=== PATIENT | male | born 1985 | race Hispanic/Latino ===

== ENCOUNTER 2019-01-29 00:53 | Observation (INO) | payer SELFPAY ==
[2019-01-29] MEDS ORDERED: Morphine 4 MG/ML VIAL ONE ×3 (01:11→03:45)
[2019-01-29] MEDS ORDERED: Ondansetron PF 4 MG/2 ML Vial ONE ×2 (01:11→13:54)
[2019-01-29 01:33] LABS: #Basophils 0.1 thou/uL (0.0-0.2); #Eosinphils 0.1 thou/uL (0.0-0.7); #Lymphocytes 2.5 thou/uL (1.20-3.40); #Monocytes 0.7 thou/uL (0.11-0.59); #Neutrophils 7.2 thou/uL (1.40-6.50); %Basophils 1.2 % (0.0-1.0); %Eosinophils 0.5 % (0.0-10.0); %Lymphocytes 23.9 % (21.0-51.0); %Monocytes 6.5 % (0.0-10.0); %Neutrophils 67.9 % (42.0-75.0); Hemoglobin 15.8 g/dL (14.0-18.0); Mean Corpuscular HGB CONC 34.9 g/dL (32.0-36.0); Mean Corpuscular Hemoglobin 29.7 pg (27.0-31.0); Mean Corpuscular Volume 84.9 fL (78.0-98.0); Platelet Count 152 thou/uL (130-400); RBC Distribution Width 12.6 % (11.5-14.5); Red Blood Cell (RBC) Count 5.33 mill/uL (4.70-6.10); White Blood Cell (WBC) Count 10.6 thou/uL (4.8-10.8)
[2019-01-29 01:51] LABS: ALT (SGPT) 69 U/L (8-55); AST (SGOT) 41 U/L (5-34); Albumin 4.8 g/dL (3.5-5.0); Alkaline Phosphatase 118 U/L (40-150); Anion Gap 16 mmol/L (10-20); BUN (Urea Nitrogen) 18 mg/dL (8.9-20.6); Bilirubin, Total 0.5 mg/dL (0.2-1.2); Calc. Creatinine Clearance 0 mL/min (70-130); Carbon Dioxide 24 mmol/L (22-29); Chloride 101 mmol/L (98-107); Estimated GFR-MDRD 83; Globulin 4.3 g/dL (2.4-3.5); Glucose 142 mg/dL (70-105); Lipase 32 U/L (8-78); Protein, Total 9.1 g/dL (6.0-8.3); Sodium 137 mmol/L (136-145)
[2019-01-29] MEDS ORDERED: Piperacillin/Tazobactam 4.5 GM VIAL ONE (03:45)
[2019-01-29 04:44] VITALS: BMI 45.1
[2019-01-29] MEDS ORDERED: Morphine 4 MG/ML VIAL SLOW IVP PRN ×2 (05:32→14:57)
[2019-01-29] MEDS ORDERED: Ondansetron ODT 4 MG TAB SL PRN (05:33)
[2019-01-29] MEDS ORDERED: Ondansetron PF 4 MG/2 ML Vial IVP PRN ×2 (05:33→14:55)
[2019-01-29] MEDS ORDERED: Sodium Chloride 0.9% 1,000 ML IV SCH (05:45)
--- NOTE | 2019-01-29 08:07 | CT ---
PRELIMINARY REPORT/[facility]/EMERGENTY AFTER-HOURS PROCEDURE CT Abdomen and Pelvis With Contrast EXAM DATE/TIME: 01/29/2019 2:19 AM CLINICAL HISTORY: 33 years old, male; Pain; Abdominal pain; Acute; Patient HX: M33 reports to ed C/O constant nonradiat ing abdominal pain, since 2099. PT reports vomiting x5-6 with no blood. PT denies cp, cough, diarrhea , urinary problems, alcohol TECHNIQUE: Axial computed tomography images of the abdomen and pelvis with intravenous contrast. Coronal reformatted images were created and reviewed. COMPARISON: No relevant prior studies available. FINDINGS: Lower thorax: No acute findings. ABDOMEN: Liver: Normal. Gallbladder and bile ducts: Cholelithiasis, without CT evidence of acute cholecystitis. Pancreas: Normal. Spleen: Normal. Adrenals: Normal. Kidneys and ureters: Normal. Stomach and bowel: Minimal scattered colonic diverticulosis. Appendix: Appendix is normal. PELVIS: Bladder: Unremarkable as visualized. Reproductive: Unremarkable as visualized. ABDOMEN and PELVIS: Intraperitoneal space: Normal. No free air. No significant fluid collection. Bones/joints: No acute abnormality. Soft tissues: Small fat-containing right inguinal hernia, without acute complications. Vasculature: Normal. No abdominal aortic aneurysm. Lymph nodes: Normal. No enlarged lymph nodes. IMPRESSION: No acute abdominal or pelvic abnormality. Thank you for allowing us to participate in the care of your patient. Dictated and Authenticated by: Brown Mcknight MD 01/29/2019 3:32 AM Central Time ([place] & [place]) FINAL REPORT CT ABDOMEN AND PELVIS WITH IV CONTRAST: Date: 01-29-19 Performed on emergency basis at 0221 hours. History: Abdominal pain. FINDINGS: Hyperdense stones are apparent within the gallbladder lumen. No associated inflammation is evident. N o evidence of bowel obstruction. No acute abnormalities are demonstrated. I agree with the preliminary report by Dr. Mcknight from [facility]. Code QA. POS: [facility]
--- NOTE | 2019-01-29 08:39 | RAD ---
CHEST 1 VIEW: Date: 01/29/19 HISTORY: Nausea and vomiting. FINDINGS: Cardiac silhouette is magnified and upper limits of normal in size. Pulmonary vasculature is unremark able. Mediastinum is midline. No lobar consolidation or evident of pneumothorax. IMPRESSION: No active cardiopulmonary abnormalities are demonstrated. POS: [facility]
[2019-01-29 08:59] VITALS: BP 116/74; TEMP 97.7
[2019-01-29] MEDS ORDERED: ISOVUE-370 76%-LOCM 1 ML ONE (10:41)
--- NOTE | 2019-01-29 10:41 | HP ---
CHIEF COMPLAINT: Abdominal pain. HISTORY OF PRESENT ILLNESS: Mr. Sibley is a 33-year-old man, who had sudden onset of upper abdominal pain last night around 9 o'clock. He states that this was accompanied by nausea and vomiting and some chills, but no fever. He had one similar episode in the past, but the pain went away after a few hours. At this time, the pain was not relenting, so he ended up coming into the emergency room. He was found to have cholelithiasis on CT scan and was tender in the right upper quadrant and epigastrium. His LFTs were mildly elevated, so he was admitted for cholelithiasis and cholecystitis. PAST MEDICAL HISTORY: None. PAST SURGICAL HISTORY: None. FAMILY HISTORY: His mother and his sister have both had their gallbladder out. Otherwise, his family is healthy. SOCIAL HISTORY: He does not smoke, drink, or use illicit drugs. He is here with his and young child. ALLERGIES: HE HAS AN ALLERGY TO SULFA, WHICH CAUSES A RASH. MEDICATIONS: Takes no medications or [id number] drugs. REVIEW OF SYSTEMS: Ten-system review of systems is negative except per HPI. He is unsure what caused the pain to come on. He was exacerbated by coughing and taking a deep breath and helped by pain medication he received in the emergency room. PHYSICAL EXAMINATION: VITAL SIGNS: The patient has been afebrile since his admission, heart rate 77, blood pressure 116/74, respirations 12, and 100% saturated on room air. GENERAL: Reveals a healthy-appearing young man, in no acute distress. He is not flushed or toxic in appearance. He is not jaundiced or icteric. HEENT: Unremarkable. NECK: Supple without lymphadenopathy or thyroid nodules. HEART: Regular in its rate and rhythm without murmurs, rubs, or gallops. LUNGS: Clear to auscultation bilaterally. ABDOMEN: Soft and nondistended. He is tender to palpation in the epigastrium greater than the right upper quadrant and left upper quadrant. He does not have any other abdominal tenderness. No palpable masses or hernias. EXTREMITIES: Warm and well perfused without edema. NEUROLOGIC: No focal deficits. PSYCHIATRIC: Alert, oriented, and appropriate. LABORATORY DATA: White count is normal, hematocrit 45, platelets 152. Electrolytes were unremarkable. AST and ALT were mildly elevated at 41 and 69. The total bilirubin and lipase were normal. CT images are reviewed and I agree with the written report. He had stones without biliary dilatation. Appendix and other structures appeared normal. No wall thickening or pericholecystic fluid was noted. ASSESSMENT: Cholelithiasis, possible cholecystitis based on exam with mildly elevated LFTs. Recommendation was made to proceed with laparoscopic cholecystectomy with intraoperative cholangiogram. Inherent risks of the surgery were discussed with the patient and his . He has risks include, but are not limited to, bleeding, infection, risks of anesthesia, damage to nearby structures including bowel, liver, and bile duct, need for open surgery or other procedures. They understand, accept these risks and wished to proceed. All of the their questions were answered. Job ID: [id number]
[2019-01-29] MEDS ORDERED: Fentanyl 250 MCG/5 ML VIAL ONE (11:49)
[2019-01-29] MEDS ORDERED: Midazolam HCl 2 mg/2 ml Vial ONE (11:49)
[2019-01-29] MEDS ORDERED: Lidocaine 2% Jelly 5 ML TUBE ONE (11:49)
[2019-01-29] MEDS ORDERED: Sodium Chloride 0.9% 100 ML ONE (12:05)
[2019-01-29] MEDS ORDERED: Piperacillin/Tazobactam 3.375 GM VIAL ONE (12:05)
[2019-01-29] MEDS ORDERED: Ketorolac Tromethamine 30 MG/ML VIAL ONE (12:08)
[2019-01-29] MEDS ORDERED: Bupivacaine/Epinephrine 0.25% 30 ML VIAL ONE (12:35)
[2019-01-29] MEDS ORDERED: Iothalamate Meglumine 60% 50 ML VIAL FS ONE (12:35)
[2019-01-29] MEDS ORDERED: Dexamethasone 20 MG/5 ML VIAL ONE (13:54)
[2019-01-29] MEDS ORDERED: PROPOFOL 200 MG/20 ML VIAL ONE (13:54)
[2019-01-29] MEDS ORDERED: Rocuronium Bromide 10 MG/ML (10ML VIAL) ONE (13:54)
[2019-01-29] MEDS ORDERED: Lidocaine 1% PF 5 ML VIAL ONE (13:54)
[2019-01-29] MEDS ORDERED: Glycopyrrolate 0.2 MG/ML 5 ML SYRINGE ONE (13:54)
[2019-01-29] MEDS ORDERED: PHENYLEPHRINE-NS 100 MCG/ML 10 ML SYRINGE ONE (13:54)
[2019-01-29] MEDS ORDERED: Promethazine HCl 25 MG/ML VIAL IM PRN (14:30)
[2019-01-29] MEDS ORDERED: Promethazine HCl 25 MG/ML VIAL SLOW IVP PRN (14:30)
[2019-01-29] MEDS ORDERED: Ondansetron HCl/PF 4 MG/2 ML Vial IVP PRN (14:30)
[2019-01-29] MEDS ORDERED: Promethazine 25 MG TAB PO PRN (14:54)
[2019-01-29] MEDS ORDERED: HYDROcodone/Acetaminophen 5/325 mg Tablet PO PRN ×2 (14:58)
[2019-01-29] MEDS ORDERED: Acetaminophen 325 MG TAB PO PRN (14:59)
[2019-01-29] MEDS ORDERED: Ibuprofen 200 MG TAB PO PRN (15:00)
--- NOTE | 2019-01-29 16:02 | PDOC.OP ---
Operative Note - Operative Note Operative Note: PROCEDURE: Laparoscopic cholecystectomy with intraoperative cholangiogram SURGEON: Penny Olivares M.D. DATE OF PROCEDURE: 01/29/2019 PREOPERATIVE DIAGNOSIS: Cholelithiasis and cholecystitis, possible choledocholithiasis: POSTOPERATIVE DIAGNOSIS: Cholelithiasis and cholecystitis HISTORY: Patient with a one-day history of unrelenting epigastric pain. CT showed multiple gallstones. LFTs were mildly elevated. Laparoscopic cholecystectomy with intraoperative cholangiogram was recommended. FINDINGS: Distended hydropic gallbladder which had to be aspirated before it could be grasped. Multiple stones in the gallbladder which was white walled and mildly thickened, consistent with chronic cholecystitis, with edema around the neck consistent with an acute component. PROCEDURE IN DETAIL: After informed consent was obtained and appropriate preoperative antibiotics were administered, the patient was taken to the operating room and placed in the supine position and general endotracheal anesthesia was administered. The stomach was decompressed with an OG tube and the abdomen was prepped and draped in standard sterile fashion. Local anesthesia was infused to the skin and subcutaneous tissues at the umbilical level. A transverse skin incision was made. The fascia was elevated and a Veress needle was placed into the abdominal cavity without difficulty. Opening pressure was less than 5 and carbon dioxide gas easily insufflated to an intra- abdominal pressure of 15, which the patient tolerated well. The Veress needle was withdrawn and a [place] port advanced under direct vision. The abdominal cavity was carefully examined. There was no evidence of Veress needle or of trocar injury. Local anesthesia was infused to the skin and subcutaneous tissues at the epigastric, right upper quadrant, and right lateral abdominal sites and trocars were placed under direct vision of the laparoscope. The fundus of the gallbladder was too taut to grasp so the gallbladder was aspirated with removal of 30 mL's of sludge and light colored bile. After aspiration the gallbladder was able to be grasped and retracted superiorly. The infundibulum was grasped and retracted laterally. The serosa was stripped inferiorly at the level of the neck of the gallbladder exposing the cystic duct and artery which were traced clearly to their insertion in the gallbladder. These were dissected free circumferentially and the cystic duct was clipped at the level of the neck of the gallbladder. The cystic artery was clipped but not divided. An incision was made in the cystic duct inferior to the clip and the cystic duct was palpated with no stones palpable. Clear bile was seen to flow from the cystic duct incision. A cholangiogram catheter was introduced and placed into the cystic duct and secured with a clip. A cholangiogram was obtained which showed an adequate length of cystic duct. There was normal filling of the common bile duct with free flow of contrast into the duodenum. There was normal retrograde flow into the common hepatic duct beyond the level of the bifurcation without filling defects. The cholangiogram catheter was removed and the cystic duct clipped below the incision in the cystic duct. The cystic duct was divided between these clips and the previously placed clip. The cystic artery was clipped and divided between the previously placed clips. The gallbladder was then dissected free of the gallbladder bed using hook electrocautery. Prior to complete removal of the gallbladder from the gallbladder bed, the area of the cystic duct and artery stumps was examined. The clips were in good position completely across these structures and there was no bleeding and no leakage of bile. The gallbladder was then placed into an EndoCatch bag and drawn out through the epigastric incision. The epigastric trocar was replaced and the operative site easily irrigated to clear. There was no significant bleeding or spillage of bile. The epigastric trocar was removed and the fascia closed under direct laparoscopic vision with a 0 Vicryl suture on a GraNee needle in a virezx-of-fizls manner with excellent technical result. The right upper quadrant and right lateral abdominal trocars were removed and hemostasis verified. Carbon dioxide gas was allowed to desufflate through the umbilical trocar which was then removed. The skin incisions were closed with 4- 0 subcuticular Monocryl sutures and Dermabond dressings were placed. The patient was extubated and taken to the recovery room in good condition. There were no complications. ESTIMATED BLOOD LOSS: Minimal. SPECIMEN : Gallbladder and contents.
--- NOTE | 2019-01-31 11:04 | RAD ---
INTRAOPERATIVE CHOLANGIOGRAM: Date; 01/29/19 PROVIDED CLINICAL HISTORY: Cholecystectomy. FINDINGS: Single spot fluoroscopic image of the right upper quadrant demonstrates opacification of the extrahep atic biliary system without evidence for filling defect. Contrast material opacifies the duodenum. IMPRESSION: As above. POS: [facility]
== END 2019-01-29 18:05 | disposition home or self-care (01) ==
LOC: ERS 00:53 → SURG B 03:42
PROVIDERS: ADMIT Surgery; ATTEND Surgery
PROC: 0FT44ZZ Resection of Gallbladder, Percutaneous Endoscopic Approach (ICD-10-PCS; principal; 2019-01-29)
PROC: BF101ZZ Fluoroscopy of Bile Ducts using Low Osmolar Contrast (ICD-10-PCS; 2019-01-29)
DX: K80.10 Calculus of gallbladder with chronic cholecystitis without obstruction (principal); Z88.2 Allergy status to sulfonamides
CPT/HCPCS: 47532; 71045; 74177; 80053; 83690; 84484; 85025; 88304; 93005; 96361; 96365; 96375; 96376; G0378; J0131; J1100; J1610; J1885; J2001; J2250; J2270; J2405; J2543; J2704; J3010; J7050; Q9961; Q9966

== ENCOUNTER 2023-03-09 08:26 | Emergency (ER) | payer OTHER, SELFPAY ==
[2023-03-09 10:41] LABS: Bilirubin Negative (Negative); Blood, Urine Negative (Negative); Clarity Clear (Clear); Glucose, Urine (Dipstick) Normal (Negative); Ketone, Urine Negative (Negative); Leukocyte Negative Leu/uL (Negative); Nitrite Negative (Negative); Protein, Urine (Dipstick) Negative (Neg-Trace); Specific Gravity, Urine 1.006 (1.002-1.036); Urobilinogen Normal mg/dL (Less than 2); pH, Urine 6.5 (5.0-9.0)
[2023-03-10 14:01] LABS: Chlam.trachomatis by PCR,Urine Not Detected (NotDetected); GC N.gonorrhoeae PCR,UrineVOID Not Detected (NotDetected)
== END 2023-03-09 11:24 | disposition home or self-care (01) ==
LOC: ERS 08:26
DX: N48.1 Balanitis (principal); M54.9 Dorsalgia, unspecified; I10 Essential (primary) hypertension
CPT/HCPCS: 74176; 81003; 87491; 87591

== ENCOUNTER 2023-07-10 12:20 | Outpatient (CLI) | payer OTHER | END 2023-07-10 12:21 | disposition home or self-care (01) | LOC: RAD 12:20 | PROVIDERS: ATTEND Nurse Practitioner Family | DX: M54.50 Low back pain, unspecified (principal) | CPT/HCPCS: 72100 ==

== ENCOUNTER 2023-08-07 09:11 | Outpatient (CLI) | payer OTHER | END 2023-08-07 09:12 | disposition home or self-care (01) | LOC: BICULT 09:11 | PROVIDERS: ATTEND Nurse Practitioner Family | DX: N50.89 Other specified disorders of the male genital organs (principal) | CPT/HCPCS: 76870; 93976 ==